=== PATIENT | female | born 1955 | race Caucasian/White ===

== ENCOUNTER → 2021-01-09 | Day surgery (SDC) | payer OTHER ==
[~2021-01-09] VITALS: Ht 165.1 cm; Wt 94.9 kg
[~2021-01-09] MED LIST: ALOGLIPTIN12.5 MG PO; ASPIRIN CHEWABL81 MG PO; BENADRYL25 MG PO; CYMBALTA 30MG C30 MG PO; DICLOFENAC SOD100 MG PO; DULOXETINE HCL60 MG PO; FLEXERIL10 MG PO; GRALISE600 MG PO; JANUVIA50 MG PO; LABETALOL HCL200 MG PO; LOVASTATIN20 MG PO; METFORMIN HCL500 MG PO; METHOTREXATE2.5 MG PO; MOBIC7.5 M1 PO; OXYCODONE-ACET1 EAC1 PO; OXYCODONE-ACET1 EACH PO; OXYCONTIN 10MG10 MG PO; PERCOCET 10-321 EACH PO; PRAVASTATIN SOD80 MG PO; PRIMIDONE50 MG PO; PROVIGIL200 MG PO; VENTOLIN HFA IN18 GM INH; VITAMIN B-121000 MC1 PO; VITAMIN D5000 UNI1 PO; VOLTAREN **OUT50 MG PO
[2021-01-09 09:30] LABS: HCT 41.1 % (37.0-47.0); HGB 13.2 g/dl (12.5-16.0); MCH 27.1 pg (25.0-31.0); MCHC 32.1 g/dL (32.0-36.0); MCV 84.4 fL (78.0-100.0); MPV 10.4 fL (6.0-9.5); RBC 4.87 M/uL (4.20-5.40); RDW 18.6 % (11.5-14.0); WBC 11.6 K/uL (4.0-10.5)
[2021-01-09 09:46] LABS: BUN/CREAT RATIO (CALC) 16.7 RATIO; CREATININE 0.84 mg/dL (0.51-0.95); POTASSIUM 4.6 mmol/L (3.5-5.1)
== END | disposition home or self-care (01) ==
LOC: FAS 08:27
PROVIDERS: Legal Medicine
DX: M75.121 Complete rotator cuff tear or rupture of right shoulder, not specified as traumatic (principal); M75.41 Impingement syndrome of right shoulder; G89.18 Other acute postprocedural pain; I10 Essential (primary) hypertension; E78.5 Hyperlipidemia, unspecified; J45.909 Unspecified asthma, uncomplicated; G47.30 Sleep apnea, unspecified; K58.9 Irritable bowel syndrome, unspecified; E11.9 Type 2 diabetes mellitus without complications; F17.200 Nicotine dependence, unspecified, uncomplicated; X58.XXXA Exposure to other specified factors, initial encounter; Z79.84 Long term (current) use of oral hypoglycemic drugs; Z79.899 Other long term (current) drug therapy; Z88.8 Allergy status to other drugs, medicaments and biological substances
CPT/HCPCS: 36415; 80048; 93005; C1713; J0171; J0690; J1100; J2250; J2370; J2405; J2704; J2795; J7120

== ENCOUNTER → 2021-03-22 | Day surgery (SDC) | payer OTHER ==
[~2021-03-22] VITALS: Ht 165.1 cm; Wt 94.9 kg
[~2021-03-22] MED LIST changes: +FOLIC ACID1 M1 PO; +PROBIOTIC1 EAC1 PO
[2021-03-22 06:51] LABS: HCT 37.6 % (37.0-47.0); HGB 12.1 g/dl (12.5-16.0); MCH 27.9 pg (25.0-31.0); MCHC 32.2 g/dL (32.0-36.0); MCV 86.6 fL (78.0-100.0); RBC 4.34 M/uL (4.20-5.40); RDW 16.7 % (11.5-14.0); WBC 12.5 K/uL (4.0-10.5)
[2021-03-22 07:10] LABS: BUN/CREAT RATIO (CALC) 19.8 RATIO; CREATININE 0.86 mg/dL (0.51-0.95); POTASSIUM 4.1 mmol/L (3.5-5.1)
== END | disposition home or self-care (01) ==
LOC: FAS 06:10
PROVIDERS: Anesthesiology; Legal Medicine
DX: T85.692A Other mechanical complication of permanent sutures, initial encounter (principal); S46.091A Other injury of muscle(s) and tendon(s) of the rotator cuff of right shoulder, initial encounter; G89.18 Other acute postprocedural pain; I10 Essential (primary) hypertension; F17.200 Nicotine dependence, unspecified, uncomplicated; E11.9 Type 2 diabetes mellitus without complications; E78.5 Hyperlipidemia, unspecified; J45.909 Unspecified asthma, uncomplicated; G47.30 Sleep apnea, unspecified; M19.90 Unspecified osteoarthritis, unspecified site; E78.00 Pure hypercholesterolemia, unspecified; Z88.8 Allergy status to other drugs, medicaments and biological substances; Z79.1 Long term (current) use of non-steroidal anti-inflammatories (NSAID); Z79.84 Long term (current) use of oral hypoglycemic drugs; Z79.899 Other long term (current) drug therapy
CPT/HCPCS: 36415; 80048; J0171; J0690; J1100; J2250; J2370; J2405; J2704; J2795; J3010; J7120